=== PATIENT | female | born 1995 | race Caucasian/White ===

== ENCOUNTER → 2024-08-30 10:30 | Outpatient (REF) | payer OTHER, SELFPAY | LOC: RAD 10:30 | PROVIDERS: ATTENDING PHYSICIAN Otolaryngology | DX: J33.9 Nasal polyp, unspecified (principal) | CPT/HCPCS: 70486 ==

== ENCOUNTER → 2024-11-05 11:15 | Outpatient (REF) | payer OTHER, SELFPAY | LOC: CLAB 11:15 | PROVIDERS: ATTENDING PHYSICIAN Otolaryngology | DX: J32.9 Chronic sinusitis, unspecified (principal) | CPT/HCPCS: 88304 ==